=== PATIENT | male | born 1930 | race Caucasian/White ===

== ENCOUNTER 2017-09-29 11:10 | Emergency (ER) | payer MEDICARE, BC ==
--- NOTE | 2017-09-29 12:15 | ERNOTE ---
Lower Extremity HPI - Narrative Date of Service: 09/29/17 - General Lower Extremities Pain: hip: left, knee: left Time Seen by Provider: 09/29/17 11:38 Source: patient Exam Limitations: no limitations - Immun/Allergies/Home Medications Immunizations: IMMUNIZATION HX Immunizations Up to Date Yes History of Influenza Vaccine Yes Hx Pneumococcal Vaccination No Allergies/Adverse Reactions: Allergies Allergy/AdvReac Type Severity Reaction Status Date / Time No Known Allergies Allergy Unverified 03/27/13 11:54 Home Medications: HOME MEDICATIONS Carbamazepine [Carbatrol] 200 mg PO TID 09/29/17 [Last Taken Unknown] Dabigatran Etexilate Mesylate [Pradaxa] 150 mg PO BID #60 capsule 09/29/17 [ Last Taken Unknown] Lisinopril 20 mg PO DAILY 09/29/17 [Last Taken Unknown] Metoprolol Tartrate 50 mg PO DAILY 09/29/17 [Last Taken Unknown] NIFEdipine [Nifedipine ER] 30 mg PO DAILY 09/29/17 [Last Taken Unknown] prednisoLONE ACETATE [Pred Forte 1%] 1 drop OP DAILY 09/29/17 [Last Taken Unknown] - History of Present Illness Narrative: Pt. comes in with c/o LLE pain for three weeks. Pt. denies any SOB, CP, NVD, fever, numbness, tingling, recent illness or injury. Pt. has a hx of DVT of this extremity that felt similar but on opposite side of the [place]. Pt. denies any alleviating or aggravating factors but states that he is very active and the pain is limiting his activity. Pt. went to the walk in clinic for treatment but was sent here as the provider is concerned that pt. may have repeat DVT. Review of Systems - Review of Systems Constitutional: Present: no symptoms reported. Absent: recent illness, fever, chills, weakness, fatigue, malaise EYE: Present: no symptoms reported ENT: Present: no symptoms reported Respiratory: Present: no symptoms reported. Absent: shortness of breath, cough , wheezing Cardiology: Present: no symptoms reported. Absent: chest pain, palpitations, edema Gastrointestinal/Abdominal: Present: no symptoms reported. Absent: nausea, vomiting, diarrhea Genitourinary: Present: no symptoms reported Musculoskeletal: Present: muscle pain - L lateral hip, L lateral knee down to L lateral lower calf. Absent: back pain, joint pain Skin: Present: no symptoms reported Neurological: Present: no symptoms reported. Absent: headache, dizziness/light- headedness, numbness, tingling All Other Systems: All systems neg except as marked - Patient's Past Medical History Patient History - Medical: Diabetes Type 2, Hypothyroidism, Osteoarthritis, Renal Failure, Seizures Patient History - Cardiac/Respiratory: Deep Vein Thrombosis, Hypertension Patient History - Surgical Procedures: Hernia Repair Patient History - Other: None - Family History Father Family History - Medical: Mother Family History - Medical: - Social History Living Situations: home Abuse History: No History of abuse Psych History: No pertinent hx Smoking Status: Never smoker Have you smoked in the past 12 months: No Do you dip or chew tobacco: No Alcohol Use: none Drug Use: none - Immunizations Immunizations Up to Date: Yes Hx Pneumococcal Vaccination: No History of Influenza Vaccine: Yes Physical Exam - Physical Exam General Appearance: Present: wd/wn, alert, no apparent distress Head Exam: Present: normal inspection, no evidence of injury Eye Exam: Normal inspection: bilateral, PERRL: bilateral, EOMI: bilateral Ears, Nose, Throat: Present: normal ENT inspection, normal pharynx Neck: Present: normal inspection, nontender. Absent: lymphadenopathy (R), lymphadenopathy (L) Respiratory: Present: no respiratory distress, normal breath sounds, no accessory muscle use, chest nontender, lungs clear Cardiovascular/Chest: Present: regular rate, rhythm, no murmur, normal peripheral pulses Back Exam: Present: normal inspection, normal range of motion, no vertebral tenderness Extremity Exam: Present: normal range of motion, calf tenderness - L lateral, extremity edema - trace Neurological Exam: Present: alert, oriented, normal mood/affect, no motor/ sensory deficits Skin Exam: Present: normal color, warm/dry. Absent: pallor Lymphatic Exam: Absent: axilla node (R) ED Progress - Date and Time Seen: Date and Time: 09/29/17 16:[address] Farrell regarding starting back on Pradaxa and he agrees. - Vital Signs Patient's Vital Signs:: I have reviewed the patient's vital signs. 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 - Progress/Reassessment Chief Complaint: Lower Extremity Pain/ Injury Progress:: Unchanged Departure Clinical Impression: DVT (deep venous thrombosis) Qualifiers: DVT location: lower extremity Affected thrombotic vein of extremity: unspecified lower extremity distal vein Chronicity: acute Laterality: left Qualified Code(s): I82.4Z2 - Acute embolism and thrombosis of unspecified deep veins of left distal lower extremity - Departure Disposition: Home self-care Condition: Good Instructions: Deep Vein Thrombosis Additional Instructions: Please take your medications when you get home and make follow up wppointment with Dr Farrell in 2-3 days. May take tylenol for pain. Referrals: Caleb Farrell MD [Primary Care Provider] - Prescriptions: Dabigatran Etexilate Mesylate [Pradaxa] 150 mg PO BID #60 capsule
[2017-09-29] MEDS ORDERED: hydrALAZINE HCL 20 MG/ML VIAL IV ONE (12:46)
[2017-09-29 12:47] VITALS: BP 148/109
== END 2017-09-29 13:03 | disposition home or self-care (01) ==
LOC: ER 11:10
DX: I82.4Z2 Acute embolism and thrombosis of unspecified deep veins of left distal lower extremity (principal); I10 Essential (primary) hypertension; Z86.718 Personal history of other venous thrombosis and embolism

== ENCOUNTER 2017-10-03 12:43 | Observation (INO) | payer MEDICARE, BC ==
[2017-10-03] MEDS ORDERED: NORMAL SALINE 1,000 ML IV ONE (12:59)
[2017-10-03 13:16] LABS: Hematocrit 51.6 % (42.0-52.0); Hemoglobin 18.6 gm/dL (13.5-18.0); Mean Corpuscular Hemoglobin 35.7 pg (27-31); Mean Platelet Volume 9.3 fl (6.0-9.5); Neutrophil # 10.8 K/mm3 (1.3-6.0); Neutrophil % 86.6 % (42-75.0); Platelet Count 214 K/mm3 (150-450); Red Blood Count 5.21 M/mm3 (4.7-6.0); Red Cell Distribution Width 13.1 % (11.5-14.0); White Blood Count 12.5 K/mm3 (4.0-10.5)
[2017-10-03 13:28] LABS: Albumin * 3.7 gm/dl (3.4-5.0); Anion Gap 17.8 mmol/L (6.8-13.8); BUN/Creatinine Ratio 18.2 (9.0-21.6); Bilirubin, Total 0.8 mg/dL (0.0-1.1); Ca. Corrected For Albumin 8.9 mg/dL (8.4-10.2); Carbon Dioxide 19.3 mmol/L (24-32.6); Potassium 4.1 mmol/L (3.4-4.6); Total Protein 7.6 gm/dL (6.2-8.2)
[2017-10-03 13:56] LABS: Urine Bilirubin Negative (NEGATIVE); Urine Ketone Negative (NEGATIVE); Urine Nitrite Negative (NEGATIVE); Urine Protein Negative (NEGATIVE); Urine Specific Gravity 1.015 SP.GR. (1.005-1.030); Urine Urobilinogen Normal (NORMAL)
[2017-10-03 14:04] LABS: Urine Appearance Clear; Urine Bacteria None Seen; Urine Blood 5 /ul (NEGATIVE); Urine Color Dark Yellow; Urine RBC 0-5 /hpf (0-5); Urine WBC None Seen /hpf (0-5)
[2017-10-03] MEDS ORDERED: NIFEdipine 30 MG TAB.SR.24H PO ONE ×2 (14:53→14:56)
[2017-10-03] MEDS ORDERED: METOPROLOL TARTRATE 25 MG TABLET ONE (14:53)
[2017-10-03] MEDS ORDERED: LISINOPRIL 10 MG TABLET ONE (14:53)
[2017-10-03] MEDS ORDERED: METOPROLOL TARTRATE 25 MG TABLET PO ONE (14:56)
--- NOTE | 2017-10-03 15:37 | ERNOTE ---
Abdominal HPI - Narrative Date of Service: 10/03/17 - General Chief Complaint: Abdominal Pain Time Seen by Provider: 10/03/17 12:50 Source: patient, family Exam Limitations: no limitations - Immun/Allergies/Home Medications Immunizatons: IMMUNIZATION HX Immunizations Up to Date Yes History of Influenza Vaccine Yes Hx Pneumococcal Vaccination Yes Allergies/Adverse Reactions: Allergies No Known Allergies Allergy (Verified 10/03/17 12:52) Home Medications: HOME MEDICATIONS Carbamazepine [Carbatrol] 200 mg PO TID 09/29/17 [Last Taken Unknown] Dabigatran Etexilate Mesylate [Pradaxa] 150 mg PO BID #60 capsule 09/29/17 [ Last Taken Unknown] Lisinopril 20 mg PO DAILY 09/29/17 [Last Taken Unknown] Metoprolol Tartrate 50 mg PO DAILY 09/29/17 [Last Taken Unknown] NIFEdipine [Nifedipine ER] 30 mg PO DAILY 09/29/17 [Last Taken Unknown] prednisoLONE ACETATE [Pred Forte 1%] 1 drop OP DAILY 09/29/17 [Last Taken Unknown] - History of Present Illness Narrative: Patient presents to the ED for diarrhea. He relates that in the last 24 hours he has had diarrhea TNTC. Nausea but no vomiting. No other sick contacts but he has recently been in the hospital with a DVT (outpatient). He relates he is feeling very weak all over. No CP or locaizing abdominal pain but has had some abdominal cramps. no fever or acute CP. He feels somewhat SOB but this is worse with exertion and not his primary complaint. No blood in stool. Timing: constant, getting worse Quality: severe Activities at Onset: none Modifying Factors - (Improves): Present: other - nothing Modifying Factors - (Worsens): Present: other - nothing Associated Symptoms: Present: diarrhea-mucous, nausea. Absent: chest pain, diarrhea-gross blood, fever/chills, vomiting Prior Abdominal Problems: Present: none Prior Treatment: Present: recently seen Review of Systems - Review of Systems Constitutional: Absent: fever Respiratory: Absent: cough Cardiology: Absent: chest pain Gastrointestinal/Abdominal: Present: See HPI Genitourinary: Absent: dysuria Skin: Absent: rash All Other Systems: All systems neg except as marked - Patient's Past Medical History Patient History - Medical: Diabetes Type 2, Hypothyroidism, Osteoarthritis, Renal Failure, Seizures, Other Patient History - Cardiac/Respiratory: Deep Vein Thrombosis, Hypertension Patient History - Cancer: No Hx of Cancer Patient History - Surgical Procedures: Hernia Repair Patient History - Other: None - Family History Father Family History - Medical: Mother Family History - Medical: - Social History Living Situations: home Abuse History: No History of abuse Psych History: No pertinent hx Smoking Status: Never smoker Alcohol Use: none Drug Use: none - Immunizations Immunizations Up to Date: Yes Hx Pneumococcal Vaccination: Yes History of Influenza Vaccine: Yes Physical Exam - Physical Exam General Appearance: Present: alert, no apparent distress Head Exam: Present: normal inspection, no evidence of injury Eye Exam: Normal inspection: bilateral, PERRL: bilateral Ears, Nose, Throat: Present: dry mucous membranes. Absent: nasal congestion Neck: Present: normal inspection Respiratory: Present: no respiratory distress, normal breath sounds, no accessory muscle use, lungs clear Cardiovascular/Chest: Present: normal peripheral pulses, tachycardia Gastrointestinal/Abdominal: Present: normal bowel sounds, nontender, nondistended, soft, no organomegaly. Absent: guarding, rebound Back Exam: Absent: CVA tenderness (R), CVA tenderness (L) Extremity Exam: Present: other - known DVT left leg Neurological Exam: Present: alert, normal mood/affect, other - no acute unilateral lfocal motor or sensory deficits. Generalized weakness noted. Skin Exam: Present: normal color, warm/dry ED Progress - Results and Orders Patient's Lab Results:: I have reviewed the patient's lab results. - Vital Signs Patient's Vital Signs:: I have reviewed the patient's vital signs. Vital Signs: Vital Signs 10/03/17 10/03/17 10/03/17 12:44 13:12 13:59 Temperature 36.6 C Pulse Rate 109 H 108 H 105 H Respiratory 22 H 14 20 Rate Blood Pressure 168/101 138/98 145/100 O2 Sat by Pulse 98 97 97 Oximetry 10/03/17 10/03/17 14:33 14:57 Temperature 37.0 C Pulse Rate 109 H 103 H Respiratory 22 H Rate Blood Pressure 163/100 192/114 O2 Sat by Pulse 95 Oximetry - X-Ray X-Ray #1 X-Ray: abdomen Interpretation: Interp. by me X-ray Comments: I reviewed official radiology report - Progress/Reassessment Chief Complaint: Abdominal Pain Progress Note-Subjective: 10/03/17 15:36 Patient given IV fluids. Had diarrhea stools here. He felt oo weak to go home. I feel his Sx are from dehydration. D/W Dr Farrell, will admit obs for further evaluation and management Departure Clinical Impression: Dehydration, Generalized weakness - Departure Disposition: [facility] Condition: Stable
--- NOTE | 2017-10-03 16:38 | HP ---
Chief Complaint - Chief Complaint Date of Service: 10/03/17 Time of Service: 16:25 Chief Complaint: Diarrhea, weakness, elevated BP History of Present Illness: 86 yo WM with PMH significant for HTN, trigeminal neuralgia and DVT - L CHELSEY, was in his usual state of health until this am when he began with "massive diarrhea " that left him weak and dizzy and with elevated blood pressure. He denies F/C/ CP/SOB or bloody stools. Does state that his abdomen hurts a great deal, but only when pushed on or touched. He was unable to walk in the ER and with his tachycardia, heme positive stools and elevated BP (most likely from dehydration) felt it was best to admit for IVF and monitor rate control and BP's. - Patient's Past Medical History Patient History - Medical: Osteoarthritis, Renal Failure, Other Patient History - Cardiac/Respiratory: Deep Vein Thrombosis, Hypertension Patient History - Cancer: No Hx of Cancer Patient History - Surgical Procedures: Hernia Repair Patient History - Other: None - Family History Father Family History - Medical: Family History - Cardiac/Respiratory: No pertinent hx Family History - Cancer: No pertinent family hx Mother Family History - Medical: Family History - Cardiac/Respiratory: No pertinent hx Family History - Cancer: No pertinent family hx - Social History Living Situations: alone Abuse History: No History of abuse Psych History: No pertinent hx Smoking Status: Never smoker Have you smoked in the past 12 months: No Alcohol Use: none Drug Use: none - Immunizations Immunizations Up to Date: Yes Hx Pneumococcal Vaccination: Yes History of Influenza Vaccine: Yes Review Of Systems (GEN) - Review of Systems Generalized/Overall Review: Present: Weakness, Malaise. Absent: Chills, Fever EENTM: Present: No Symptoms Reported Respiratory: Present: No Symptoms Reported Cardiac: Present: No Symptoms Reported Abdominal: Present: Nausea, Vomiting, Abdominal Pain, Diarrhea. Absent: Hematemesis, Melena, Bright blood from rectum Genitourinary: Present: No Symptoms Reported Musculoskeletal: Present: No Symptoms Reported Neurological: Present: No Symptoms Reported Skin: Present: No Symptoms Reported Endocrine: Present: No Symptoms Reported Immunizations: IMMUNIZATION HX Immunizations Up to Date Yes History of Influenza Vaccine Yes Hx Pneumococcal Vaccination Yes Allergies/Adverse Reactions: Allergies Allergy/AdvReac Type Severity Reaction Status Date / Time No Known Allergies Allergy Verified 10/03/17 15:59 Home Medications: HOME MEDICATIONS Carbamazepine [Carbatrol] 200 mg PO TID 09/29/17 [Last Taken Unknown] Dabigatran Etexilate Mesylate [Pradaxa] 150 mg PO BID #60 capsule 09/29/17 [ Last Taken Unknown] Lisinopril 20 mg PO DAILY 09/29/17 [Last Taken Unknown] Metoprolol Tartrate 50 mg PO DAILY 09/29/17 [Last Taken Unknown] NIFEdipine [Nifedipine ER] 30 mg PO DAILY 09/29/17 [Last Taken Unknown] prednisoLONE ACETATE [Pred Forte 1%] 1 drop OP DAILY 09/29/17 [Last Taken Unknown] Exam - Exam Vital Signs: Vital Signs - Last Taken Temp 36.7 C 10/03/17 15:41 Pulse 121 H 10/03/17 15:41 Resp 22 H 10/03/17 15:41 BP 185/108 10/03/17 15:41 Pulse Ox 100 10/03/17 15:41 Constitutional: Present: Alert, Oriented x3, Cooperative, Mild distress ENT Exam: Present: hard of hearing, dry mucous membranes Eye Exam: bilateral eye: normal inspection, PERRL, EOMI Neck: Present: supple Respiratory: Present: lungs clear, normal breath sounds, no respiratory distress , no accessory muscle use Cardiovascular/Chest: Present: tachycardia Peripheral Pulses: radial (R): 1+, radial (L): 1+ Abdomen: Present: tender, guarding, other - hyperactive BS., distended Extremity: Present: no calf tenderness. Absent: lower extremity edema Skin Exam: Present: normal color Neurologic: Present: normal mood/affect, oriented x 3 Appearance: Present: appropriate appearance, appropriate insight Eye contact: Present: cooperative, good eye contact Thoughts: Present: normal thought pattern, no apparent hallucination Diagnostic Studies: Laboratory Results WBC 12.5 K/mm3 (4.0-10.5) H 10/03/17 13:15 RBC 5.21 M/mm3 (4.7-6.0) 10/03/17 13:15 Hgb 18.6 gm/dL (13.5-18.0) H 10/03/17 13:15 Hct 51.6 % (42.0-52.0) 10/03/17 13:15 MCV 99.0 fl (78-100) 10/03/17 13:15 MCH 35.7 pg (27-31) H 10/03/17 13:15 MCHC 36.0 g/dl (32-36) 10/03/17 13:15 RDW 13.1 % (11.5-14.0) 10/03/17 13:15 Plt Count 214 K/mm3 (150-450) 10/03/17 13:15 MPV 9.3 fl (6.0-9.5) 10/03/17 13:15 Immature Gran % (Auto) 0.60 % (0.001-0.429) H 10/03/17 13:15 Immature Gran # (Auto) 0.07 K/mm3 (0.000-0.0310) H 10/03/17 13:15 Neutrophils % 86.6 % (42-75.0) H 10/03/17 13:15 Lymphocytes % 4.0 % (20-51) L 10/03/17 13:15 Monocytes % 6.3 % (0.0-9) 10/03/17 13:15 Eosinophils % 2.2 % (0.0-3.0) 10/03/17 13:15 Basophils % 0.3 % (0.0-1.0) 10/03/17 13:15 Nucleated RBC % 0.0 k/mm3 (0-1) 10/03/17 13:15 Neutrophils # 10.8 K/mm3 (1.3-6.0) H 10/03/17 13:15 Lymphocytes # 0.5 k/mm3 (1.5-3.5) L 10/03/17 13:15 Monocytes # 0.8 k/mm3 (0.0-1.0) 10/03/17 13:15 Eosinophils # 0.3 k/mm3 (0.0-0.7) 10/03/17 13:15 Absolute Basophils 0.0 k/mm3 (0.0-0.1) 10/03/17 13:15 Sodium 141 mmol/L (132-142) 10/03/17 13:15 Plasma Sodium 142 mmol/L (130-142) 10/03/17 13:15 Potassium 4.1 mmol/L (3.4-4.6) 10/03/17 13:15 Chloride 108 mmol/L (97-106) H 10/03/17 13:15 Carbon Dioxide 19.3 mmol/L (24-32.6) L 10/03/17 13:15 Anion Gap 17.8 mmol/L (6.8-13.8) H 10/03/17 13:15 BUN 32 mg/dL (6-23) H 10/03/17 13:15 Creatinine 1.76 mg/dL (0.4-1.4) H 10/03/17 13:15 Est GFR (Non-Af Amer) 39 mL/min (60-130) L 10/03/17 13:15 BUN/Creatinine Ratio 18.2 (9.0-21.6) 10/03/17 13:15 Random Glucose 161 mg/dL (70-110) H 10/03/17 13:15 Calcium 9.0 mg/dL (7.9-10.9) 10/03/17 13:15 Calcium Adj for Albumin 8.9 mg/dL (8.4-10.2) 10/03/17 13:15 Total Bilirubin 0.8 mg/dL (0.0-1.1) 10/03/17 13:15 AST 21 U/L (0-48) 10/03/17 13:15 ALT 21 U/L (19-67) 10/03/17 13:15 Alkaline Phosphatase 100 U/L (50-170) 10/03/17 13:15 Total Protein 7.6 gm/dL (6.2-8.2) 10/03/17 13:15 Albumin 3.7 gm/dl (3.4-5.0) 10/03/17 13:15 Lipase 211 U/L (73-393) 10/03/17 13:15 Urine Color Dark yellow 10/03/17 13:30 Urine Appearance Clear 10/03/17 13:30 Urine pH 6.0 pH (5.0-7.0) 10/03/17 13:30 Ur Specific [place] 1.015 SP.GR. (1.005-1.030) 10/03/17 13:30 Urine Protein Negative mg/dL (NEGATIVE) 10/03/17 13:30 Urine Glucose (UA) Negative mg/dL (NEGATIVE) 10/03/17 13:30 Urine Ketones Negative mg/dL (NEGATIVE) 10/03/17 13:30 Urine Blood 5 /ul (NEGATIVE) H 10/03/17 13:30 Urine Nitrate Negative (NEGATIVE) 10/03/17 13:30 Urine Bilirubin Negative mg/dl (NEGATIVE) 10/03/17 13:30 Urine Urobilinogen Normal EU/dl (NORMAL) 10/03/17 13:30 Ur Leukocyte Esterase Negative /ul (NEGATIVE) 10/03/17 13:30 Urine RBC 0-5 /hpf (0-5) 10/03/17 13:30 Urine WBC None seen /hpf (0-5) 10/03/17 13:30 Ur Epithelial Cells None seen /hpf (0-5) 10/03/17 13:30 Urine Bacteria None seen (NONE) 10/03/17 13:30 Urine Culture Comments No culture indicated 10/03/17 13:30 Stool Occult Blood Positive H 10/03/17 13:30 Assessment/Plan - Assessment/Plan (1) HTN (hypertension) Assessment: medications continued unchanged for now. Problem: Acute (2) Heme positive stool Assessment: check for C. diff, norovirus, rotavirus. Believe this is more infectious cause than GI bleed issue. will follow for now. Problem: Acute (3) Dehydration Assessment: will do IVF at 125ml/hr and allow him to drink as much as he wants. can bolus him in am if HR and/or BP remains high - 500ml at a time of NS given/1hr. Problem: Acute (4) Generalized weakness Assessment: hopefully with good hydration we can get him strong enough to go home tomorrow. Problem: Acute (5) DVT (deep venous thrombosis) Assessment: will hold pradaxa for tonight, most likely restart tomorrow unless gross bloody stools. Problem: Chronic Qualifiers: DVT location: lower extremity Affected thrombotic vein of extremity: popliteal Chronicity: chronic Laterality: left Qualified Code(s): I82.532 - Chronic embolism and thrombosis of left popliteal vein (6) Discharge planning issues Assessment: hope to d/c home in am. Problem: Acute
[2017-10-03] MEDS: NORMAL SALINE 1,000 ML IV PRN (16:52)
[2017-10-03 17:51] LABS: CDIFF Negative (Negative)
[2017-10-04] MEDS: NORMAL SALINE 1,000 ML IV PRN ×2 (00:34→08:48)
[2017-10-04] MEDS: SACCHAROMYCES BOULARDII 250 MG CAPSULE PO SCH ×2 (07:16→08:49)
[2017-10-04] MEDS ORDERED: METOPROLOL TARTRATE 50 MG TABLET PO SCH (09:00)
[2017-10-04] MEDS ORDERED: LISINOPRIL 20 MG TABLET PO SCH (09:00)
[2017-10-04] MEDS ORDERED: NIFEdipine 30 MG TAB.SR.24H PO SCH (09:00)
[2017-10-04] MEDS ORDERED: prednisoLONE ACETATE 50 DROP BTL OP SCH (09:00)
[2017-10-04 10:45] VITALS: BP 132/91
--- NOTE | 2017-10-04 13:00 | DS ---
(1) HTN (hypertension) Problem: Acute (2) Heme positive stool Problem: Acute (3) Dehydration Problem: Acute (4) Generalized weakness Problem: Acute (5) DVT (deep venous thrombosis) Problem: Chronic Qualifiers: DVT location: lower extremity Affected thrombotic vein of extremity: popliteal Chronicity: chronic Laterality: left Qualified Code(s): I82.532 - Chronic embolism and thrombosis of left popliteal vein (6) Discharge planning issues Problem: Acute Description of Stay: Admitted for dehydration (tachycardia and elevated BP), N/V/Diarrhea and weakness where he couldn't stand. He received IVF, probiotics and though still having diarrhea, he was feeling better and walking great enough distance to be able to do ADL's at home. He did have a run of V. tach last night that last 10sec. but no episodes while ambulating today and no complaints otherwise. He was tolerating PO well enough to maintain hydration at home. He was guaiac positive in ER, but no gross blood in stool while here so will continue him on pradaxa for now for his DVT. Procedures Performed: none Discharge Disposition: Home self care Disposition: Home self-care Condition: Good Discharge Activity: Activity as tolerated Discharge Diet: Clear Liquids - can advance diet then as tolerated. Referrals: Caleb Farrell MD [Primary Care Provider] - Two Weeks Additional Patient Instructions (free text): Please make TCM appointment at discharge, if applicable. Thank you! Bhavna @ ext:[phone]. Complete Home Medications List: Complete Home Medication List: Carbamazepine [Carbatrol] 200 mg PO TID 09/29/17 Dabigatran Etexilate Mesylate [Pradaxa] 150 mg PO BID #60 capsule 09/29/17 Lisinopril 20 mg PO DAILY 09/29/17 Metoprolol Tartrate 50 mg PO DAILY 09/29/17 NIFEdipine [Nifedipine ER] 30 mg PO DAILY 09/29/17 prednisoLONE ACETATE [Pred Forte 1%] 1 drop OP DAILY 09/29/17 Saccharomyces Boulardii [Florastor] 250 mg PO BID capsule 10/04/17
== END 2017-10-04 15:51 | disposition home or self-care (01) ==
LOC: ER 12:43 → MS 15:17
PROVIDERS: ADMIT Family Medicine; ATTEND Family Medicine
DX: E86.0 Dehydration (principal); R19.7 Diarrhea, unspecified; I82.409 Acute embolism and thrombosis of unspecified deep veins of unspecified lower extremity; Z79.01 Long term (current) use of anticoagulants; E11.9 Type 2 diabetes mellitus without complications; I10 Essential (primary) hypertension; R19.5 Other fecal abnormalities; E03.9 Hypothyroidism, unspecified; Z68.23 Body mass index [BMI] 23.0-23.9, adult
CPT/HCPCS: 36415; 74020; 80053; 81001; 82272; 83690; 85025; 87045; 87046; 87425; 87493; 93005; 96360; 96361; 99285; G0378